=== PATIENT | male | born 1980 | race African-American/Black ===

== ENCOUNTER 2024-05-14 11:07 | Emergency (ER) | payer MEDICAID ==
[~2024-05-14] VITALS: Ht 170.2 cm; Wt 70.0 kg
[2024-05-14 11:12] VITALS: O2SAT 99
[2024-05-14] MEDS: KETOROLAC 30MG/ML VIAL IV ONE (11:43)
[2024-05-14] MEDS ORDERED: CELE-384 MT (13:07)
[2024-05-14 13:20] VITALS: BP 125/72; PULSE 95; RESP 15; TEMP 98.4
== END 2024-05-14 13:22 | disposition home or self-care (01) ==
LOC: ER 11:07
DX: R07.81 Pleurodynia (principal)
CPT/HCPCS: 99283; 96374; 71045; 93005; J1885